=== PATIENT | male | born 1960 | race Caucasian/White ===

== ENCOUNTER → 2020-04-10 | Outpatient (CLI) | payer SELFPAY ==
--- NOTE | 2020-04-10 16:41 | Diagnostic Imaging Report ---
EXAMINATION: Magnetic resonance imaging of the right shoulder without contrast. DATE: April 10, 2020. COMPARISON: None. HISTORY: 59-year-old male, right shoulder pain. History of multiple prior injuries. TECHNIQUE: Magnetic Resonance Imaging sequences were performed of the shoulder without contrast. FINDINGS: ROTATOR CUFF, LIGAMENTS, TENDONS, AND MUSCLES: There are full thickness, full width tears of the supraspinatus and infraspinatus tendons with tendon retraction at the glenoid. There is thinning of the subscapularis tendon. The teres minor tendon is intact. There is moderate to severe fatty atrophy of the supraspinatus, infraspinatus, and teres minor muscles. LONG HEAD OF BICEPS: The proximal long head of the biceps tendon is not identified in its intra-articular segment or in the bicipital groove and is likely torn and retracted below the level of the bicipital groove. GLENOHUMERAL JOINT: The humeral head is well positioned relative to the glenoid. The labrum is grossly intact. There is no identified paralabral cyst. The articular cartilage is grossly intact. There is no joint effusion. ACROMIOCLAVICULAR JOINT: The acromioclavicular joint is normally aligned. The coracoclavicular and coracoacromial ligaments are intact. There are moderate acromioclavicular degenerative changes with 4 mm undersurface osteophytes. BONE: There is no os acromiale. There is no acute fracture, bone contusion, or evidence of osteonecrosis. There is a prominent subcortical cyst in the superior humeral head underlying the infraspinatus tendon insertion. BURSAE AND SOFT TISSUES: The bursae and soft tissue surrounding the shoulder are unremarkable. IMPRESSION: 1. Full thickness, full width tears of the supraspinatus and infraspinatus tendons with tendon retraction to the level of the glenoid. Thinning of the subscapularis tendon. Moderate to severe fatty atrophy of the supraspinatus, infraspinatus, and teres minor muscles. 2. Moderate acromioclavicular degenerative changes with 4 mm undersurface osteophytes. 3. Grossly intact labrum and unremarkable additional glenohumeral joint assessment. 4. No acute fracture, bone contusion, or evidence of osteonecrosis. 5. Lack of visualization of the intra-articular segment of the long head of biceps tendon or within the bicipital groove. The proximal long head of biceps tendon may be torn and retracted below the level of the bicipital groove. Dictated by: Dictated on workstation # [id number]
== END ==
LOC: RAD 13:41
PROVIDERS: ATTEND Nurse Practitioner
DX: S46.011A Strain of muscle(s) and tendon(s) of the rotator cuff of right shoulder, initial encounter (principal); X58.XXXA Exposure to other specified factors, initial encounter; M19.011 Primary osteoarthritis, right shoulder
CPT/HCPCS: 73221

== ENCOUNTER → 2020-06-28 | Outpatient (CLI) | payer OTHER ==
[~2020-06-28] VITALS: Ht 170 cm; Wt 79.0 kg
[~2020-06-28] MED LIST: CATHETER FLUSH 10 ML SYR IV PRN; REGADENOSON 0.4 MG/5 ML SYR (LEXISCAN) IV ONE
[2020-06-28 12:43] VITALS: BP 137/97
--- NOTE | 2020-06-28 15:39 | Cardiology Stress Test Report ---
Stress Test Report Date of Procedure/Referring: Date of Procedure: Jun 28, 2020 PCP Amita Jenkins MD Admitting Physician No,Local Physician Indications: CP Baseline Heart Rate: 87 Baseline Blood Pressure: Blood Pressure Systolic: 137 Blood Pressure Diastolic: 97 Baseline Vitals Vital Signs Date Time Temp Pulse Resp B/P (MAP) Pulse Ox O2 Delivery O2 Flow Rate FiO2 06/28/20 12:43 83 137/97 (110) 98 Baseline EKG: Baseline EKG: NSR Summary After explaining the procedure to the patient, he signed a consent and then brought to the stress nuclear laboratory. Patient received 0.4 mg Lexiscan for stress test, ECG, heart rate and blood pressure were monitored continuously. Resting and stress dose of radio tracer were injected, imaging was acquired and reviewed in short axis, horizontal long axis and vertical long axis views. TID: 1.04 SSS: 1 SDS: 1 EF: 33 1. Patient tolerated Lexiscan well 2. Nondiagnostic EKG changes with Lexiscan injection resolved at the end of the test 3. Diaphragmatic attenuation with decreased uptake involving the mid to apical inferior wall and inferolateral wall with mild reversibility 4. Prominent left ventricle with hypokinesia at the inferior wall and inferolateral wall, EF 33% AMITA JENKINS MD Jun 28, 2020 15:39
== END ==
LOC: CARD 10:33
PROVIDERS: ATTEND Internal Medicine Cardiovascular Disease
DX: I45.10 Unspecified right bundle-branch block (principal); I51.7 Cardiomegaly; I35.1 Nonrheumatic aortic (valve) insufficiency; I35.0 Nonrheumatic aortic (valve) stenosis
CPT/HCPCS: 78452; 93017; 93306; A9502

== ENCOUNTER 2020-07-12 09:00 | Day surgery (SDC) | payer OTHER ==
[~2020-07-12] VITALS: Ht 170 cm; Wt 77.0 kg
[2020-07-12] VITALS (10 sets, daily range): BP systolic 115–146; BP diastolic 75–87
[2020-07-12 07:46] LABS: HEMOGLOBIN 15.6 g/dL (13.3-17.7); MEAN PLATELET VOLUME 10.6 fL (9.0-12.2); WHITE BLOOD COUNT 8.7 10^3/uL (4.3-11.0)
[2020-07-12 07:48] LABS: BILIRUBIN,URINE NEGATIVE (NEGATIVE); CLARITY,URINE CLEAR; COLOR,URINE YELLOW; GLUCOSE, URINE (UA) NEGATIVE (NEGATIVE); KETONES,URINE NEGATIVE (NEGATIVE); LEUKOCYTE ESTERASE ,URINE NEGATIVE (NEGATIVE); NITRITE,URINE NEGATIVE (NEGATIVE); PROTEIN,URINE NEGATIVE (NEGATIVE)
--- NOTE | 2020-07-12 07:54 | Diagnostic Imaging Report ---
INDICATION: Preop EXAMINATION: Portable chest. FINDINGS: The lungs are well-aerated and clear. The heart is not enlarged. No pulmonary edema or hilar adenopathy. No pneumothorax or pleural effusion. No bony abnormalities. IMPRESSION: Normal portable chest. Dictated by: Dictated on workstation # [id number]
[2020-07-12 08:00] LABS: BACTERIA,URINE NEGATIVE /HPF
[2020-07-12 08:12] LABS: INR 0.9 (0.8-1.4); PROTHROMBIN TIME PATIENT 12.3 SEC (12.2-14.7)
[2020-07-12 08:13] LABS: ALANINE AMINOTRANSFERASE 58 U/L (0-55); ALBUMIN 4.3 GM/DL (3.2-4.5); ALKALINE PHOSPHATASE 137 U/L (40-136); BILIRUBIN,TOTAL 0.6 MG/DL (0.1-1.0); BUN/CREATININE RATIO 13; CALCIUM 9.2 MG/DL (8.5-10.1); CARBON DIOXIDE 26 MMOL/L (21-32); CHLORIDE 102 MMOL/L (98-107); CHOLESTEROL 166 MG/DL (< 200); CREATININE SERUM 1.07 MG/DL (0.60-1.30); GFR ESTIMATED > 60; GLUCOSE 106 MG/DL (70-105); HDL CHOLESTEROL 44 MG/DL (40-60); POTASSIUM 3.8 MMOL/L (3.6-5.0); SODIUM 140 MMOL/L (135-145); TOTAL PROTEIN 8.1 GM/DL (6.4-8.2); TRIGLYCERIDES 118 MG/DL (<150); VLDL CHOLESTEROL 24 MG/DL (5-40)
--- NOTE | 2020-07-12 08:38 | Conscious Sedation/ASA ---
Conscious Sedation Pre-Proced Time 08:38 ASA Score 3 For ASA 3 and 4: Consider anesthesia and medical clearance. Also, for patients with a history of failed moderate sedation consider anesthesia. Airway Lungs Heart ASA score ASA 1: a normal healthy patient ASA 2: a patient with a mild systemic disease (mid diabetes, controlled hypertension, obesity x ASA 3: a patient with a severe systemic disease that limits activity (angina, COPD, prior Myocardial infarction) ASA 4: a patient with an incapacitating disease that is a constant threat to life (CHF, renal failure) ASA 5: a moribund patient not expected to survive 24 hrs. (ruptured aneurysm) ASA 6: a declared brain- patient whose organs are being harvested. For emergent operations, add the letter E after the classification Mallampati Classification Grade 3 Sedation Plan Analgesia, Amnesia, Plan communicated to team members, Discussed options with patient/fam, Discussed risks with patient/fam The patient is an appropriate candidate to undergo the planned procedure, sedation, and anesthesia. The patient immediately re-assessed prior to indication. AMITA KAUR MD July 12, 2020 08:38
[~2020-07-12 09:00] MED LIST changes: +ASPI-1238 PO; +ATOR40TA70 PO; -CATHETER FLUSH 10 ML SYR IV PRN; +HEParin (CATH LAB) 2,000 ML IV ONE; +LIDOCAINE 1% INJ 20 ML 20 ML VIAL ONE; +MIDAZOLAM 5 MG/5 ML (VERSED) VIAL ONE; +MTP25TSR PO; +NS IV 1000 ML 1,000 ML IV SCH; +NS IV 1000 ML 1,000 ML ONE; +OMEP20CA18 PO; -REGADENOSON 0.4 MG/5 ML SYR (LEXISCAN) IV ONE; +RT-ALBUINH IH; +fentaNYL INJ 100 MCG/2 ML AMP ONE
--- NOTE | 2020-07-12 09:40 | Cardiac Cath Report ---
Cardiac Cath Report Physician (s)/[employer] Helper (s) Physician AMITA KAUR MD Pre-Procedure Diagnosis Pre-Procedure Diagnosis: Aortic stenosis Post-Procedure Note Procedure Start Date: July 12, 2020 Name of Procedure: Left heart catheterization Findings/Procedure Note PROCEDURE NOTE: 59 years old gentleman with critical aortic valve stenosis, having chest pain, shortness of breath, scheduled for cardiac catheterization possible PTCA. After explaining the procedure to the patient, all pros and cons were explained, all questions were answered. The patient signed the consent and then he was placed on the cardiac catheterization laboratory. Groin was prepped SL fashion local anesthesia was used. Sheath placed in the right femoral artery, Meena left catheter was advanced to the left coronary system, angiogram was done, Meena right catheter was advanced over Storq wire, prolapsed to the left ventricle after crossing the valve with the Storq wire, pressure was measured, left ventriculogram was done, pullback LV to aorta was done. Intubated the right coronary artery and angiogram was done. At the end of the procedure the sheath was removed. Closure device was deployed FINDINGS: Hemodynamics LV 211/32, end-diastolic pressure of 32 Aorta 126/69 mean of 90 Pressure gradient during pullback was 85 mmHg ANATOMY: Left Main is free of obstructive disease Left Anterior Descending has no significant obstructive disease Left Circumflex has no significant obstructive disease Right Coronary Artery has no significant obstructive disease LV Gram was done showing normal left ventricular size, systolic function is mildly reduced estimate ejection fraction 40% CONCLUSION: 1. Critical aortic valve stenosis with peak to peak gradient across the aortic valve of 85 mmHg 2. No significant obstructive disease in the coronary system 3. Mild diffuse left ventricular hypokinesia with EF 45%, significantly elevated left ventricular end-diastolic pressure DISCUSSION AND RECOMMENDATION: Referral for aortic valve replacement, I instructed the patient to stop Lipitor due to elevated liver enzymes Anesthesia Type: Conscious Sedation Estimated blood loss (mL): 15 ml Contrast Amount: 50 ml Total Radiation Dose: 228 mGy Post-Procedure Diagnosis Post-operative diagnosis: Critical aortic valve stenosis Hypertension Chest pain AMITA KAUR MD July 12, 2020 9:40 am
[2020-07-12] MEDS ORDERED: NS IV 1000 ML 1,000 ML IV SCH (09:45)
[2020-07-12] MEDS ORDERED: PATIENT MAY USE OWN MEDS, ALL PO SCH (09:45)
--- NOTE | 2020-07-12 09:50 | Discharge Inst-Post CATH ---
Discharge Inst-CATH/EP Problems Reviewed?: Yes Post Cardiac Cath/EP D/C Inst Follow Up/Plan Appointment with Dr. Nuñez next Friday on July 19, [address] Kaur's office in 4 weeks <b>CARDIAC CATH/EP PROCEDURE DISCHARGE INSTRUCTIONS</b> ACTIVITY * Go Home directly and rest. * Limit activity of the leg (or wrist if it was used) for 7 days including aerobics, swimming, jogging, bicycling, etc. * Restrict stair-climbing for 7 days if possible, if not, climb up with your non-cath leg, then bring together on the same step. * Avoid lifting, pushing, pulling or excessive movement of the affected extremity for 7 days. * Customary sexual activity may be resumed after 2 days-use caution not to use a position that strains or causes pain to the affected extremity. * No driving for 24 hours. * NO SMOKING. * Avoid straining for bowel movements for 7 days. * Gentle walking on level ground is allowed. * Returning to work will depend on the type of procedure and the results. Your doctor will discuss this with you. CALL YOUR DOCTOR FOR ANY OF THE FOLLOWING: *If bleeding from the puncture site occurs- Apply gentle pressure to site with clean cloth and call your doctor or EMS. * If a knot or lump forms under the skin, increases in size, or causes pain. * If bruising appears to be worsening or moving further down your leg instead of disappearing. * Temperature above 101 F. CARE OF YOUR GROIN INCISION; * Bruising or purple discoloration of the skin near the puncture site is common. * You may shower only, no bathtub bathing for 5 days. Be careful to avoid slipping as your leg may feel stiff. * If a closure device was used on your femoral artery, please see the attached guide regarding care of the device and your leg. * Leave dressing on FOR 24 hours. CARE OF YOUR WRIST INCISION; * Bruising or purple discoloration of the skin near the puncture site is common. * You may shower. * DO NOT submerge wrist. * Leave dressing on FOR 24 hours. AMITA KAUR MD July 12, 2020 9:50 am
== END 2020-07-12 14:15 | disposition home or self-care (01) ==
LOC: CATH 09:00 → SDC 09:54 → CATH 14:15
PROVIDERS: ATTEND Internal Medicine Cardiovascular Disease
DX: R07.2 Precordial pain (principal); I35.2 Nonrheumatic aortic (valve) stenosis with insufficiency; I11.9 Hypertensive heart disease without heart failure; E78.5 Hyperlipidemia, unspecified; F17.210 Nicotine dependence, cigarettes, uncomplicated; R09.89 Other specified symptoms and signs involving the circulatory and respiratory systems; Z88.0 Allergy status to penicillin; Z79.899 Other long term (current) drug therapy; Z80.9 Family history of malignant neoplasm, unspecified; Z82.3 Family history of stroke
CPT/HCPCS: 36430; 71045; 80053; 80061; 81000; 85027; 85610; 85730; 87081; 93458; C1760; C1769; C1894; 36415

== ENCOUNTER 2021-01-11 08:01 | Emergency (ER) | payer MEDICAID ==
[~2021-01-11] VITALS: Ht 170.1 cm; Wt 77.0 kg
[~2021-01-11 08:01] MED LIST changes: -HEParin (CATH LAB) 2,000 ML IV ONE; -LIDOCAINE 1% INJ 20 ML 20 ML VIAL ONE; -MIDAZOLAM 5 MG/5 ML (VERSED) VIAL ONE; -NS IV 1000 ML 1,000 ML IV SCH; -NS IV 1000 ML 1,000 ML ONE; -fentaNYL INJ 100 MCG/2 ML AMP ONE
[2021-01-11] MEDS ORDERED: NS IV 1000 ML 1,000 ML IV STA (08:19)
--- NOTE | 2021-01-11 08:19 | ED EENT ---
History of Present Illness General Chief Complaint: Facial Problems Stated Complaint: FACIAL SWELLING; SORE THROAT Source: patient History of Present Illness Date Seen by Provider: Jan 11, 2021 Time Seen by Provider: 08:03 Initial Comments 60 yo male presents with right throat pain and right facial swelling that started about 1 hour [employer]. He started lipitor 40 mg and Lisinopril 40 mg yesterday after seeing Dr. Veronica Arellano in the [facility] clinic. He states he did use a chloraseptic spray for his throat and thinks the swelling was after that. He had no fever or chills but states he felt like he was coming down with a cold in last day or two. He was having some muffled voice. He reports pain with swallowing. He thought he was having an allergic reaction since he just started those medicines yesterday. He has no shortness of breath, wheezing, rash, itching. He did notice on his left forearm that he had an area with a ring around it that looked like a scratch in the middle of the ring. He was wondering if it might be a spider bite since he had a ring around the area. Timing/Duration: abrupt, this morning Severity: moderate Location: throat, facial Prearrival Treatment: no prearrival treatment Associated Symptoms: No change in hearing, No cough, No drooling, No ear drainage; facial pain/swelling; No fever; malaise, nasal congestion/drainage; No poor fluid intake, No poor solids intake, No sinus infection; sore throat; No tooth pain (edentulous); voice change (muffled) Allergies and Home Medications Allergies Coded Allergies: Penicillins (Unverified Allergy, Unknown, 06/28/20) Patient Home Medication List Home Medication List Reviewed: Yes Albuterol Sulfate (Proair Hfa) 1 Puff Puff, 2 PUFF IH Q6H PRN for SHORTNESS OF BREATH, (Reported) Entered as Reported by: CHEYENNE MODI on 07/12/20 0749 Aspirin (Aspirin EC) 81 Mg Tablet.dr, 81 MG PO DAILY, (Reported) Entered as Reported by: CHEYENNE MODI on 07/12/20 0749 Clindamycin HCl (Clindamycin HCl) 300 Mg Capsule, 300 MG PO Q6H Prescribed by: OSCAR SEGURA on 01/11/21 1008 Metoprolol Succinate (Metoprolol Succinate) 25 Mg Tab.er.24h, 25 MG PO DAILY, (Reported) Entered as Reported by: CHEYENNE MODI on 07/12/2049 Omeprazole (Omeprazole) 20 Mg Capsule.dr, 20 MG PO DAILY, (Reported) Entered as Reported by: CHEYENNE MODI on 07/12/20 0749 Review of Systems Review of Systems Constitutional: No chills, No fever; malaise Eyes: No Symptoms Reported Ears: No Symptoms Reported Nose: see HPI Mouth: swelling (right cheek and face) Throat: pain (right side), swelling (right side); denies neck stiffness; muffled, painful swallowing Respiratory: no symptoms reported Cardiovascular: no symptoms reported Gastrointestinal: no symptoms reported Musculoskeletal: no symptoms reported Skin: no symptoms reported Neurological: No Symptoms Reported Past Nnkeypj-[id number]-Kwckdd Hx Patient Social History Tobacco Use?: Yes Tobacco type used: Cigarettes Smoking Status: Current Everyday Smoker Substance use?: No Past Medical History Surgery/Hospitalization HX: Aortic valve replacement, All teeth removed Surgeries: Yes Valve Replacement (aortic) Respiratory: Yes COPD Currently Using CPAP: No Currently Using BIPAP: No Cardiac: Yes High Cholesterol, Hypertension, Valvular Heart Disease (Aortic Valve Stenosis resulting in valve replacement) Neurological: Yes Concussion Genitourinary: No Gastrointestinal: Yes Gastroesophageal Reflux Cancer: No Physical Exam Vital Signs Vital Signs - First Documented 01/11/21 08:16 Temp 36.2 Pulse 87 Resp 16 B/P (MAP) 156/97 (116) Pulse Ox 97 O2 Delivery Room Air Height, Weight, BMI Height: '" Weight: lbs. oz. kg; 26.64 BMI Method: General Appearance: WD/WN, no apparent distress, other (anxious) Eyes: bilateral eye PERRL, bilateral eye EOMI Mouth/Throat: voice changes (muffled), other (swelling to right cheek and right posterior pharynx with erythema to posterior pharynx extending up to the soft palate. No exudate seen. Strong Gag Reflex makes it difficult to visualize posterior pharynx. Edentulous) Neck: non-tender, full range of motion, supple, normal inspection Cardiovascular: normal peripheral pulses, regular rate, rhythm Respiratory: chest non-tender, normal breath sounds Neurologic/Psychiatric: alert, oriented x 3 Skin: normal color, warm/dry; No rash; other (5 mm linear abrasion to mid left forearm with surrounding ring of faint erythema. swelling to right cheek) Progress/Results/Core Measures Results/Orders Lab Results Laboratory Tests Test 01/11/21 08:23 Range/Units White Blood Count 10.5 4.3-11.0 10^3/uL Red Blood Count 5.84 H 4.30-5.52 10^6/uL Hemoglobin 15.7 13.3-17.7 g/dL Hematocrit 49 40-54 % Mean Corpuscular Volume 84 80-99 fL Mean Corpuscular Hemoglobin 27 25-34 pg Mean Corpuscular Hemoglobin Concent 32 32-36 g/dL Red Cell Distribution Width 17.6 H 10.0-14.5 % Platelet Count 167 130-400 10^3/uL Mean Platelet Volume 10.7 9.0-12.2 fL Immature Granulocyte % (Auto) 0 % Neutrophils (%) (Auto) 69 42-75 % Lymphocytes (%) (Auto) 18 12-44 % Monocytes (%) (Auto) 11 0-12 % Eosinophils (%) (Auto) 2 0-10 % Basophils (%) (Auto) 0 0-10 % Neutrophils # (Auto) 7.2 1.8-7.8 X 10^3 Lymphocytes # (Auto) 1.9 1.0-4.0 X 10^3 Monocytes # (Auto) 1.2 H 0.0-1.0 X 10^3 Eosinophils # (Auto) 0.2 0.0-0.3 10^3/uL Basophils # (Auto) 0.0 0.0-0.1 10^3/uL Immature Granulocyte # (Auto) 0.0 0.0-0.1 10^3/uL Sodium Level 137 135-145 MMOL/L Potassium Level 4.1 3.6-5.0 MMOL/L Chloride Level 102 98-107 MMOL/L Carbon Dioxide Level 26 21-32 MMOL/L Anion Gap 9 5-14 MMOL/L Blood Urea Nitrogen 17 7-18 MG/DL Creatinine 1.35 H 0.60-1.30 MG/DL Estimat Glomerular Filtration Rate 54 BUN/Creatinine Ratio 13 Glucose Level 111 H 70-105 MG/DL Calcium Level 9.2 8.5-10.1 MG/DL Corrected Calcium 9.0 8.5-10.1 MG/DL Total Bilirubin 0.6 0.1-1.0 MG/DL Aspartate Amino Transf (AST/SGOT) 27 5-34 U/L Alanine Aminotransferase (ALT/SGPT) 22 0-55 U/L Alkaline Phosphatase 110 40-136 U/L Total Protein 7.8 6.4-8.2 GM/DL Albumin 4.2 3.2-4.5 GM/DL Group A Streptococcus Screen NEGATIVE NEGATIVE My Orders Orders - OSCAR SEGURA MD Comprehensive Metabolic Panel (01/11/21 08:16) Ed Iv/Invasive Line Start (01/11/21 08:16) Cbc With Automated Diff (01/11/21 08:16) Rapid Strep A Screen (01/11/21 08:16) Ct Neck (Soft Tissue) W (01/11/21 08:16) Dexamethasone Injection (Decadron Inje (01/11/21 08:16) Ns Iv 1000 Ml (Sodium Chloride 0.9%) (01/11/21 08:19) Iohexol Injection (Omnipaque 350 Mg/Ml 1 (01/11/21 08:30) Received Contrast (Hold Metformin- Contr (01/11/21 08:30) Sodium Chloride Flush (Catheter Flush Sy (01/11/21 08:30) Ns (Ivpb) (Sodium Chloride 0.9% Ivpb Bag (01/11/21 08:30) Clindamycin 600 Mg/50 Ml Ivpb (Cleocin P (01/11/21 09:50) Medications Given in ED Current Medications Medications Dose Ordered Sig/Lena Route Start Time Stop Time Status Last Admin Dose Admin Iohexol 75 ml ONCE ONCE IV 01/11/21 08:30 01/11/21 08:31 DC 01/11/21 09:08 75 ML Sodium Chloride 10 ml NEEDED PRN IV 01/11/21 08:30 01/11/21 10:28 DC 01/11/21 09:08 10 ML Sodium Chloride 100 ml ONCE ONCE IV 01/11/21 08:30 01/11/21 08:31 DC 01/11/21 09:08 100 ML Vital Signs/I&O 01/11/21 01/11/21 08:16 10:32 Temp 36.2 36.2 Pulse 87 87 Resp 16 16 B/P (MAP) 156/97 (116) 156/97 Pulse Ox 97 97 O2 Delivery Room Air Room Air Progress Progress Note #1: Progress Note Obtain basic labs with rapid strep swab to check for infection. This does not appear to be an allergic reaction since it is so localized. Obtain CT scan of soft tissue neck to check for peritonsillar abscess, periodontal abscess, salivary duct stone with obstruction. Give IVF for hydration, a single dose of decadron for throat pain and swelling as well as cheek swelling to see if that helps symptoms while waiting on scan. Progress Note #2: Time: 08:54 Progress Note CBC with WBC at 10.5, so upper limit of normal. Normal differential. Rapid strep swab was negative. Pending chemistry to ensure renal function is ok before CT scan with contrast to be obtained. Progress Note #3: Time: 09:02 Progress Note Cr is 1.35 slightly up from his Cr of 1.07 in July. He has a slightly lower GFR now because of that, otherwise no acute significant abnormality for his chemistry panel. Pt going to CT scan now. Progress Note #4: Progress Note CT scan shows inflammation of right cheek and posterior pharynx with some fluid but no focal collection of fluid to indicate a drainable abscess. Will treat with clindamycin since he is allergic to Pcn. Give first dose IV here and continue by mouth at home. Counseled on results, plan, follow up and return precautions. Diagnostic Imaging Diagonstic Imaging: CT Plain Films/CT/US/NM/MRI: other (soft tissue neck) Comments NAME: [facility] REC#: [id number] PT STATUS: REG ER : 1960 PHYSICIAN: OSCAR SEGURA MD ADMIT DATE: 01/11/21/ER FS Draft Date of Exam:01/11/21 CT NECK (SOFT TISSUE) W PROCEDURE: CT neck soft tissue with contrast. TECHNIQUE: Multiple contiguous axial images were obtained through the neck after the administration of contrast. Auto Exposure Controls were utilized during the CT exam to meet ALARA standards for radiation dose reduction. INDICATION: Right-sided facial swelling and sore throat. COMPARISON: None available. FINDINGS: There is asymmetric subcutaneous reticulations and soft tissue swelling involving the right superficial space at the level of the right maxillary ridge and extending over the right hemimandible. The right platysmas muscle is asymmetrically thickened. No rim-enhancing fluid collection within the superficial space. Inflammatory changes extend deep along the buccal space. There is also abnormal low attenuation thickening in the parapharyngeal fat, it is asymmetric to the right and most abundant at the level of the oropharynx. Abnormal swelling and low-attenuation thickening of the uvula and epiglottis is also present. The low-attenuation inflammation and edema involves the retropharyngeal space from the level of C2-C7. However, there is no rim-enhancing collection that would indicate drainable abscess at this time. The airway remains patent but there is effacement of the right piriform sinus. No inflammatory stranding along the false vocal folds. The submandibular and parotid glands are normal in appearance without inflammatory change. Thyroid is unremarkable. No cervical lymphadenopathy. Lung apices are clear with exception of emphysema. No features of discitis-osteomyelitis. Visualized portions of the brain are unremarkable. IMPRESSION: 1. Multi-spatial inflammatory change is most abundant around the pharynx with nonloculated edema/phlegmon extending from the level the oral pharynx through the hypopharynx. Retropharyngeal fluid and swelling is present with mild mass effect on the hypopharyngeal airway. However, there is no rim-enhancing fluid collection that would suggest a drainable abscess. 2. There is no inflammatory change extending into the mediastinum. 3. The patient is edentulous and there are no features of osteomyelitis in the mandible. Dictated on workstation # [id number] Dict: 01/11/21917 Trans: 01/11/21 0938 [facility] [id number] Interpreted by: SUNNI PANDYA MD Electronically signed by: Reviewed: Reviewed by Me Departure Impression Primary Impression: Pharyngitis, acute Qualified Codes: J02.9 - Acute pharyngitis, unspecified Additional Impressions: Swelling of right side of face Throat pain in adult Cellulitis of face Disposition: 01 HOME, SELF-CARE Condition: Stable Departure-Patient Inst. Decision time for Depature: 10:16 Referrals: VERONICA ARELLANO MD (PCP/Family) Primary Care Physician Patient Instructions: Cellulitis (Skin Infection), Adult ED, Sore Throat, Adult ED Add. Discharge Instructions: Stay well-hydrated and drink plenty of water and electrolyte drinks. While taking the antibiotic for the infection in your cheek and throat make sure that you try taking a probiotic or at least yogurt with active cultures to help maintain the good bacteria in your system. Make sure to take the entire course of antibiotics to fully treat for infection in throat and cheek. If you have worsening trouble with your swallowing or get to the point where you could not swallow your own saliva and spit, then you would need to be seen again in the emergency department or in the hospital in [place] as you may need IV fluids and the internal controls specialist may need to possibly drain fluid from your infection in the neck and throat. All discharge instructions reviewed with patient and/or family. Voiced understanding. Scripts Clindamycin HCl (Clindamycin HCl) 300 Mg Capsule 300 MG PO Q6H for throat infection for 10 Days, #40 CAP 0 Refills Prov: OSCAR SEGURA MD 01/11/21 Images Head/Face 1 - Swelling (swollen right cheek without significant tenderness. no induration or fluctuance) OSCAR SEGURA MD Jan 11, 2021 08:19
[2021-01-11] MEDS ORDERED: HOLD METFORMIN - RECEIVED CONTRAST 20 ML VIAL IV SCH (08:30)
[2021-01-11] MEDS ORDERED: NS 100 ML (IVPB) BAG IV ONE (08:30)
[2021-01-11] MEDS ORDERED: CATHETER FLUSH 10 ML SYR IV PRN (08:30)
[2021-01-11] MEDS ORDERED: IOHEXOL 350 MG/ML 100 ML (OMNIPAQUE 350) VIAL IV ONE (08:30)
[2021-01-11 08:43] LABS: HEMATOCRIT 49 % (40-54); HEMOGLOBIN 15.7 g/dL (13.3-17.7); MEAN CORPUSCULAR HEMOGLOBIN 27 pg (25-34); MEAN CORPUSCULAR HGB CONC 32 g/dL (32-36); MEAN CORPUSCULAR VOLUME 84 fL (80-99); MEAN PLATELET VOLUME 10.7 fL (9.0-12.2); PLATELET COUNT 167 10^3/uL (130-400); WHITE BLOOD COUNT 10.5 10^3/uL (4.3-11.0)
[2021-01-11 08:44] LABS: BASOPHILS % (AUTO) 0 % (0-10); EOSINOPHILS # (AUTO) 0.2 10^3/uL (0.0-0.3); EOSINOPHILS % (AUTO) 2 % (0-10); LYMPHOCYTES # (AUTO) 1.9 X 10^3 (1.0-4.0); LYMPHOCYTES % (AUTO) 18 % (12-44); MONOCYTES # (AUTO) 1.2 X 10^3 (0.0-1.0); MONOCYTES % (AUTO) 11 % (0-12); NEUTROPHILS # (AUTO) 7.2 X 10^3 (1.8-7.8); NEUTROPHILS % (AUTO) 69 % (42-75)
[2021-01-11 08:57] LABS: CREATININE SERUM 1.35 MG/DL (0.60-1.30); POTASSIUM 4.1 MMOL/L (3.6-5.0)
[2021-01-11 08:58] LABS: ALBUMIN 4.2 GM/DL (3.2-4.5); BILIRUBIN,TOTAL 0.6 MG/DL (0.1-1.0); CALCIUM 9.2 MG/DL (8.5-10.1); TOTAL PROTEIN 7.8 GM/DL (6.4-8.2)
--- NOTE | 2021-01-11 09:38 | Diagnostic Imaging Report ---
PROCEDURE: CT neck soft tissue with contrast. TECHNIQUE: Multiple contiguous axial images were obtained through the neck after the administration of contrast. Auto Exposure Controls were utilized during the CT exam to meet ALARA standards for radiation dose reduction. INDICATION: Right-sided facial swelling and sore throat. COMPARISON: None available. FINDINGS: There is asymmetric subcutaneous reticulations and soft tissue swelling involving the right superficial space at the level of the right maxillary ridge and extending over the right hemimandible. The right platysmas muscle is asymmetrically thickened. No rim-enhancing fluid collection within the superficial space. Inflammatory changes extend deep along the buccal space. There is also abnormal low attenuation thickening in the parapharyngeal fat, it is asymmetric to the right and most abundant at the level of the oropharynx. Abnormal swelling and low-attenuation thickening of the uvula and epiglottis is also present. The low-attenuation inflammation and edema involves the retropharyngeal space from the level of C2-C7. However, there is no rim-enhancing collection that would indicate drainable abscess at this time. The airway remains patent but there is effacement of the right piriform sinus. No inflammatory stranding along the false vocal folds. The submandibular and parotid glands are normal in appearance without inflammatory change. Thyroid is unremarkable. No cervical lymphadenopathy. Lung apices are clear with exception of emphysema. No features of discitis-osteomyelitis. Visualized portions of the brain are unremarkable. IMPRESSION: 1. Multi-spatial inflammatory change is most abundant around the pharynx with nonloculated edema/phlegmon extending from the level the oropharynx through the hypopharynx. Retropharyngeal fluid and swelling is present with mild mass effect on the hypopharyngeal airway. However, there is no rim-enhancing fluid collection that would suggest a drainable abscess. 2. There is no inflammatory change extending into the mediastinum. 3. The patient is edentulous and there are no features of osteomyelitis in the mandible. Dictated by: Dictated on workstation # [id number]
[2021-01-11] MEDS ORDERED: CLINDAMYCIN 600 MG/50 ML IVPB 50 ML IV STA (09:50)
[2021-01-11] MEDS ORDERED: CLIN-144 PO (10:08)
[2021-01-11 10:32] VITALS: BP 156/97
== END 2021-01-11 10:28 | disposition home or self-care (01) ==
LOC: EDUNIT# 08:01 → ER FS 08:03
DX: S50.812A Abrasion of left forearm, initial encounter (principal); J02.9 Acute pharyngitis, unspecified; R22.0 Localized swelling, mass and lump, head; L03.211 Cellulitis of face; I10 Essential (primary) hypertension; J44.9 Chronic obstructive pulmonary disease, unspecified; K21.9 Gastro-esophageal reflux disease without esophagitis; F17.210 Nicotine dependence, cigarettes, uncomplicated; Z87.820 Personal history of traumatic brain injury; Z79.82 Long term (current) use of aspirin; Z79.899 Other long term (current) drug therapy; X58.XXXA Exposure to other specified factors, initial encounter
CPT/HCPCS: 36415; 70491; 80053; 85025; 87430

== ENCOUNTER → 2021-12-27 | Outpatient (CLI) | payer MEDICAID ==
[~2021-12-27] MED LIST changes: +CLIN-144 PO
== END ==
LOC: CARDFS 12:30
PROVIDERS: ATTEND Internal Medicine Cardiovascular Disease
DX: I11.9 Hypertensive heart disease without heart failure (principal); I25.10 Atherosclerotic heart disease of native coronary artery without angina pectoris; Z95.2 Presence of prosthetic heart valve
CPT/HCPCS: 93306

== ENCOUNTER 2022-01-22 06:50 | Emergency (ER) | payer MEDICAID ==
[~2022-01-22] VITALS: Ht 170 cm; Wt 77.0 kg
[~2022-01-22 06:50] MED LIST changes: +ALBU8.5H6 IH; -RT-ALBUINH IH
[2022-01-22] MEDS ORDERED: diphenhydrAMINE 50 MG/ML INJ (BENADRYL) IVP STA (07:17)
[2022-01-22] MEDS ORDERED: FAMOTIDINE 20 MG (PEPCID) TABLET PO STA (07:17)
[2022-01-22 07:26] LABS: BASOPHILS % (AUTO) 0 % (0-10); EOSINOPHILS # (AUTO) 0.3 10^3/uL (0.0-0.3); EOSINOPHILS % (AUTO) 4 % (0-10); HEMATOCRIT 48 % (40-54); LYMPHOCYTES % (AUTO) 24 % (12-44); MEAN CORPUSCULAR HEMOGLOBIN 29 pg (25-34); MEAN CORPUSCULAR HGB CONC 34 g/dL (32-36); MEAN CORPUSCULAR VOLUME 87 fL (80-99); MEAN PLATELET VOLUME 10.7 fL (9.0-12.2); MONOCYTES # (AUTO) 1.1 10^3/uL (0.0-1.0); MONOCYTES % (AUTO) 13 % (0-12); NEUTROPHILS # (AUTO) 4.9 10^3/uL (1.8-7.8); NEUTROPHILS % (AUTO) 59 % (42-75); PLATELET COUNT 168 10^3/uL (130-400); WHITE BLOOD COUNT 8.2 10^3/uL (4.3-11.0)
--- NOTE | 2022-01-22 07:27 | ED EENT ---
History of Present Illness General Chief Complaint: Oral/Throat Problems Stated Complaint: TONGUE SWELLING Nursing Triage Note: PT REPORTS HE WOKE UP AND ATE A CUPCAKE AND THEN HIS LEFT SIDE OF HIS TONGUE STARTED SWELLING. Source: patient, old records Exam Limitations: no limitations History of Present Illness Date Seen by Provider: Jan 22, 2022 Time Seen by Provider: 07:03 Initial Comments 61-year-old male presenting with complaints of swelling to the left side of his tongue. He feels like this started last night but was worse this morning after he had a cupcake and drink some milk. He denies any new medications. He has not taken any adlg-chu-fittbpq medicines. He denies any new foods or exposures that he is aware of. He had episodes of swelling similar to this in the past. A year ago he was seen for swelling of the lips and a sore throat. At that time he was treated with antibiotics. He denies having fever or chills. He feels like he is having some difficulty swallowing this morning. He has handling his own secretions. He had not tried anything at home for the swelling. He had his girlfriend drop him off here at the ED. Timing/Duration: gradual Severity: moderate Location: mouth (tongue and under his tongue) Prearrival Treatment: no prearrival treatment Modifying Factors: Worse With Other (difficulty swallowing) Associated Symptoms: No change in hearing, No cough, No drooling, No ear drainage, No facial pain/swelling, No fever, No malaise, No nasal congestion/drainage, No poor fluid intake, No poor solids intake, No sinus infection, No sore throat, No tooth pain (edentulous), No voice change Allergies and Home Medications Allergies Coded Allergies: Penicillins (Unverified Allergy, Unknown, 06/28/20) Patient Home Medication List Home Medication List Reviewed: Yes Albuterol Sulfate (Ventolin Hfa) 1 Puff Puff, 2 PUFF IH Q6H PRN for SHORTNESS OF BREATH, (Reported) Entered as Reported by: CHEYENNE MODI on 07/12/20 0749 Aspirin (Aspirin EC) 81 Mg Tablet.dr, 81 MG PO DAILY, (Reported) Entered as Reported by: CHEYENNE MODI on 07/12/20 0749 Clindamycin HCl (Clindamycin HCl) 300 Mg Capsule, 300 MG PO Q6H Prescribed by: OSCAR SEGURA on 01/11/21 1008 Diphenhydramine HCl (Diphenhydramine HCl) 25 Mg Capsule, 25 MG PO Q4H PRN for tongue swelling Prescribed by: OSCAR SEGURA on 01/22/22 0840 Metoprolol Succinate (Metoprolol Succinate) 25 Mg Tab.er.24h, 25 MG PO DAILY, (Reported) Entered as Reported by: CHEYENNE MODI on 07/12/20 0749 Omeprazole (Omeprazole) 20 Mg Capsule.dr, 20 MG PO DAILY, (Reported) Entered as Reported by: CHEYENNE MODI on 07/12/20 0749 Prednisone (Prednisone) 20 Mg Tab, 40 MG PO DAILY Prescribed by: OSCAR SEGURA on 01/22/22 0840 Review of Systems Review of Systems Constitutional: No chills, No fever Eyes: No Symptoms Reported Ears: No Symptoms Reported Nose: no symptoms reported Mouth: see HPI Throat: see HPI Respiratory: no symptoms reported Cardiovascular: no symptoms reported Gastrointestinal: no symptoms reported Musculoskeletal: no symptoms reported Skin: no symptoms reported; No rash Neurological: No Symptoms Reported Immunological/Allergic: denies food allergy Past Pvazdnk-Vyettv-Echhwe Hx Patient Social History Tobacco Use?: Yes Tobacco type used: Cigarettes Smoking Status: Current Everyday Smoker Use of E-Cig and/or Vaping dev: No Substance use?: Yes Substance type: Marijuana Substance frequency: Couple times a week Alcohol Use?: Yes Alcohol type: Hard Liquor Alcohol Frequency: Daily Pt feels they are or have been: No Immunizations Up To Date First/Initial COVID19 Vaccinat: August 2020 Second COVID19 Vaccination Kareem: August 2020 Third COVID19 Vaccination Date: August 2020 Past Medical History Surgery/Hospitalization HX: Aortic valve replacement, All teeth removed, Hypertension Surgeries: Yes Valve Replacement Respiratory: Yes COPD Currently Using CPAP: No Currently Using BIPAP: No Cardiac: Yes High Cholesterol, Hypertension, Valvular Heart Disease Neurological: Yes Concussion Genitourinary: No Gastrointestinal: Yes Gastroesophageal Reflux Cancer: No Physical Exam Vital Signs Vital Signs - First Documented 01/22/22 07:10 Temp 36.1 Pulse 85 Resp 16 B/P (MAP) 151/88 (109) Pulse Ox 96 O2 Delivery Room Air Height, Weight, BMI Height: '" Weight: lbs. oz. kg; 26.00 BMI Method: General Appearance: no apparent distress, other (appears older than stated age) Eyes: bilateral eye PERRL, bilateral eye EOMI Mouth/Throat: pharynx normal; No excessive drooling, No mandibular swelling, No maxillary swelling, No pharynx swelling; tongue swollen (under the tongue and left side of tongue); No tonsillar exudate, No trismus, No voice changes, No other (no stridor) Neck: non-tender, full range of motion, supple, normal inspection Cardiovascular: normal peripheral pulses, regular rate, rhythm Respiratory: chest non-tender, lungs clear, normal breath sounds Neurologic/Psychiatric: clinical social work therapist II-XII nml as tested, alert, oriented x 3 Skin: normal color, warm/dry; No rash Progress/Results/Core Measures Results/Orders Lab Results Laboratory Tests Test 01/22/22 07:20 Range/Units White Blood Count 8.2 4.3-11.0 10^3/uL Red Blood Count 5.49 4.30-5.52 10^6/uL Hemoglobin 16.0 13.3-17.7 g/dL Hematocrit 48 40-54 % Mean Corpuscular Volume 87 80-99 fL Mean Corpuscular Hemoglobin 29 25-34 pg Mean Corpuscular Hemoglobin Concent 34 32-36 g/dL Red Cell Distribution Width 14.6 H 10.0-14.5 % Platelet Count 168 130-400 10^3/uL Mean Platelet Volume 10.7 9.0-12.2 fL Immature Granulocyte % (Auto) 0 % Neutrophils (%) (Auto) 59 42-75 % Lymphocytes (%) (Auto) 24 12-44 % Monocytes (%) (Auto) 13 H 0-12 % Eosinophils (%) (Auto) 4 0-10 % Basophils (%) (Auto) 0 0-10 % Neutrophils # (Auto) 4.9 1.8-7.8 10^3/uL Lymphocytes # (Auto) 2.0 1.0-4.0 10^3/uL Monocytes # (Auto) 1.1 H 0.0-1.0 10^3/uL Eosinophils # (Auto) 0.3 0.0-0.3 10^3/uL Basophils # (Auto) 0.0 0.0-0.1 10^3/uL Immature Granulocyte # (Auto) 0.0 0.0-0.1 10^3/uL Sodium Level 140 135-145 MMOL/L Potassium Level 3.9 3.6-5.0 MMOL/L Chloride Level 103 98-107 MMOL/L Carbon Dioxide Level 25 21-32 MMOL/L Anion Gap 12 5-14 MMOL/L Blood Urea Nitrogen 19 H 7-18 MG/DL Creatinine 1.00 0.60-1.30 MG/DL Estimat Glomerular Filtration Rate 86 BUN/Creatinine Ratio 19 Glucose Level 71 70-105 MG/DL Calcium Level 9.5 8.5-10.1 MG/DL Corrected Calcium 9.4 8.5-10.1 MG/DL Total Bilirubin 0.3 0.1-1.0 MG/DL Aspartate Amino Transf (AST/SGOT) 30 5-34 U/L Alanine Aminotransferase (ALT/SGPT) 32 0-55 U/L Alkaline Phosphatase 93 40-136 U/L C-Reactive Protein 0.41 <0.50 MG/DL Total Protein 7.7 6.4-8.2 GM/DL Albumin 4.1 3.2-4.5 GM/DL My Orders Orders - OSCAR SEGURA MD Comprehensive Metabolic Panel (01/22/22 07:16) Ed Iv/Invasive Line Start (01/22/22 07:16) Cbc With Automated Diff (01/22/22 07:16) Crp Fs (01/22/22 07:16) Dexamethasone Injection (Decadron Inje (01/22/22 07:17) Diphenhydramine Injection (Benadryl Inje (01/22/22 07:17) Famotidine Tablet (Pepcid Tablet) (01/22/22 07:17) Ct Neck (Soft Tissue) W (01/22/22 07:18) Iohexol Injection (Omnipaque 350 Mg/Ml 1 (01/22/22 07:30) Received Contrast (Hold Metformin- Contr (01/22/22 07:30) Ns (Ivpb) (Sodium Chloride 0.9% Ivpb Bag (01/22/22 07:30) Medications Given in ED Current Medications Medications Dose Ordered Sig/Lena Route Start Time Stop Time Status Last Admin Dose Admin Iohexol 100 ml ONCE ONCE IV 01/22/22 07:30 01/22/22 07:31 DC 01/22/22 08:03 75 ML Sodium Chloride 100 ml ONCE ONCE IV 01/22/22 07:30 01/22/22 07:31 DC 01/22/22 08:03 100 ML Vital Signs/I&O 01/22/22 01/22/22 07:10 08:42 Temp 36.1 36.1 Pulse 85 85 Resp 16 16 B/P (MAP) 151/88 (109) 151/88 Pulse Ox 96 96 O2 Delivery Room Air Room Air Blood Pressure Mean: 109 Progress Progress Note #1: Progress Note Unable to determine precipitating factor for swelling from speaking with the patient. He does take Lisinopril as one of his fdc medicines for hypertension along with Amlodipine. Will check basic labs and CT soft tissue neck since he reports difficulty swallowing along with the swelling. Try Dexamethasone 10 mg IV, Benadryl 50 mg IV with Pepcid 20 mg po to try and help with swelling while waiting on labs and scan. He may need to be switched off of Lisinopril to another medicine as this could still be a cause for his angioedema symptoms, even though he has been on the medicine for a long time. Progress Note #2: Progress Note Labs are stable without acute significant abnormality. He has a normal CBC without elevation of the white blood cell count. His CRP is not elevated. His chemistry panel did not show any acute significant abnormality. CT scan of the soft tissue neck shows swelling to the tongue and underneath tissues but no fluid collection or abscess. Appears to be more reactive. There is also noted a 5 to 6 mm aneurysm at the [place]. Recommend CT angiogram brain to evaluate this in better detail. Will recommend he do th at with PCP as he had co ntrast for the CT soft tissue neck today. Recommend stopping Lisinopril and follow up with pcp for possible change in medicine. Continue amlodipine for BP control. Diagnostic Imaging Diagonstic Imaging: CT Plain Films/CT/US/NM/MRI: other (soft tissue neck) Comments NAME: [facility] REC#: [id number] PT STATUS: REG ER : 1960 PHYSICIAN: OSCAR SEGURA MD ADMIT DATE: 01/22/22/ER FS Draft Date of Exam:01/22/22 CT NECK (SOFT TISSUE) W CLINICAL INDICATION: Patient with tongue swelling after eating cup cake for breakfast. This has happened several times in the past. EXAM: Axial CT scan of the neck soft tissue performed with 75 mL of Omnipaque 350 IV contrast. Sagittal and coronal reformatted images are created. Auto Exposure Controls were utilized during the CT exam to meet ALARA standards for radiation dose reduction. COMPARISON: CT scan of the neck soft tissue with contrast dated 01/11/2021. FINDINGS: There is interval soft tissue prominence of the left side of the tongue with no measurable mass and likely related to swelling. There is no significant interval swelling of the right side of the tongue. Otherwise the visualized portion of lower cavity, sublingual and submandibular regions are unremarkable. There is bogn-pn-yrdwsmli narrowing of the oropharynx. The nasopharynx, oropharynx, hypopharynx, laryngeal soft tissue structures show no other significant abnormality. Previously seen prominence of the soft palate and bilateral palatine tonsillar regions has resolved. 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 There is no lymphadenopathy. Thyroid gland salivary glands are unremarkable. The neck vascular structures show atherosclerotic disease with no major stenosis. Visualized upper lung hurd show emphysematous disease. Stable stairstep grade 1 anterolisthesis C3 on C4, C4-C5, and C5 on C6. There are cervical spine vertebral body spurs and facet arthropathy. There is a partially visualized 5 to 6 mm saccular aneurysm arising from the anterior communicating artery region extending anteriorly. IMPRESSION: 1: There is interval development of soft tissue swelling involving left side of the tongue with atvm-ia-cuqxzcuq narrowing of the oropharynx. There is no measurable mass or fluid collection seen. This finding may be reactive. 2: The previously seen soft tissue swelling of the soft palate and bilateral palatine tonsil regions has resolved. 3: There is a 5 to 6 mm saccular aneurysm arising from the anterior communicating artery. CT angiogram of the [place] is suggested for further characterization. 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 Decision time for Depature: 08:36 Referrals: SULEMAN MARADIAGA MD (PCP/Family) Primary Care Physician Patient Instructions: Angioedema Caused by JV Inhibitor Medicines, Brain Aneurysm (DC) Add. Discharge Instructions: Stop your Lisinopril as this may be causing your swelling. Follow up with your doctor to see what medicine they would want to use to replace Lisinopril. The CT scan today showed a small aneurysm (swelling of blood vessel) in your brain. Radiologist recommends you have a CT angiogram of the [place] to evaluate this in more detail. Call your doctor to have them order this test. Take the steroids and benadryl and Pepcid to help with swelling. If worsening instead of improving return or be seen right away as you may need to be admitted for IV medicines All discharge instructions reviewed with patient and/or family. Voiced understanding. Scripts Diphenhydramine HCl (Diphenhydramine HCl) 25 Mg Capsule 25 MG PO Q4H PRN for tongue swelling for 5 Days, #30 CAP 0 Refills Prov: OSCAR SEGURA MD 01/22/22 Prednisone (Prednisone) 20 Mg Tab 40 MG PO DAILY for tongue swelling for 5 Days, #10 TAB 0 Refills Prov: OSCAR SEGURA MD 01/22/22 OSCAR SEGURA MD Jan 22, 2022 07:27
[2022-01-22] MEDS ORDERED: HOLD METFORMIN - RECEIVED CONTRAST 20 ML VIAL IV SCH (07:30)
[2022-01-22] MEDS ORDERED: IOHEXOL 350 MG/ML 100 ML (OMNIPAQUE 350) VIAL IV ONE (07:30)
[2022-01-22] MEDS ORDERED: NS 100 ML (IVPB) BAG IV ONE (07:30)
[2022-01-22 07:48] LABS: BILIRUBIN,TOTAL 0.3 MG/DL (0.1-1.0); CALCIUM 9.5 MG/DL (8.5-10.1); POTASSIUM 3.9 MMOL/L (3.6-5.0)
[2022-01-22 07:49] LABS: ALBUMIN 4.1 GM/DL (3.2-4.5); TOTAL PROTEIN 7.7 GM/DL (6.4-8.2)
--- NOTE | 2022-01-22 08:30 | Diagnostic Imaging Report ---
CLINICAL INDICATION: Patient with tongue swelling after eating cup cake for breakfast. This has happened several times in the past. EXAM: Axial CT scan of the neck soft tissue performed with 75 mL of Omnipaque 350 IV contrast. Sagittal and coronal reformatted images are created. Auto Exposure Controls were utilized during the CT exam to meet ALARA standards for radiation dose reduction. COMPARISON: CT scan of the neck soft tissue with contrast dated 01/11/2021. FINDINGS: There is interval soft tissue prominence of the left side of the tongue with no measurable mass and likely related to swelling. There is no significant interval swelling of the right side of the tongue. Otherwise the visualized portion of lower cavity, sublingual and submandibular regions are unremarkable. There is glnm-jd-vpuzylxl narrowing of the oropharynx. The nasopharynx, oropharynx, hypopharynx, laryngeal soft tissue structures show no other significant abnormality. Previously seen prominence of the soft palate and bilateral palatine tonsillar regions has resolved. 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 There is no lymphadenopathy. Thyroid gland salivary glands are unremarkable. The neck vascular structures show atherosclerotic disease with no major stenosis. Visualized upper lung hurd show emphysematous disease. Stable stairstep grade 1 anterolisthesis C3 on C4, C4-C5, and C5 on C6. There are cervical spine vertebral body spurs and facet arthropathy. There is a partially visualized 5 to 6 mm saccular aneurysm arising from the anterior communicating artery region extending anteriorly. IMPRESSION: 1: There is interval development of soft tissue swelling involving left side of the tongue with socx-nh-gaypqbwl narrowing of the oropharynx. There is no measurable mass or fluid collection seen. This finding may be reactive. 2: The previously seen soft tissue swelling of the soft palate and bilateral palatine tonsil regions has resolved. 3: There is a 5 to 6 mm saccular aneurysm arising from the anterior communicating artery. CT angiogram of the [place] is suggested for further characterization. 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 Dictated by: Dictated on workstation # [id number]
[2022-01-22] MEDS ORDERED: DIPH25CA48 PO (08:40)
[2022-01-22] MEDS ORDERED: PRD20T PO (08:40)
[2022-01-22 08:42] VITALS: BP 151/88
== END 2022-01-22 08:43 | disposition home or self-care (01) ==
LOC: EDUNIT# 06:50 → ER FS 06:53
DX: T78.3XXA Angioneurotic edema, initial encounter (principal); I72.8 Aneurysm of other specified arteries; F17.210 Nicotine dependence, cigarettes, uncomplicated; I10 Essential (primary) hypertension; Z79.899 Other long term (current) drug therapy; Z87.820 Personal history of traumatic brain injury
CPT/HCPCS: 36415; 70491; 80053; 85025; 86141; Q9967

== ENCOUNTER 2022-06-23 23:49 | Emergency (ER) | payer MEDICAID ==
[~2022-06-23] VITALS: Ht 170 cm; Wt 73.0 kg
[~2022-06-23 23:49] MED LIST changes: +DIPH-1122 PO; +PRD20T PO
[2022-06-23 23:56] VITALS: BP 155/100
--- NOTE | 2022-06-24 00:03 | ED General ---
General Chief Complaint: General Problems/Pain Stated Complaint: SHAKING/POSS MED REACTION Source of Information: Patient Exam Limitations: No Limitations History of Present Illness Date Seen by Provider: Jun 23, 2022 Time Seen by Provider: 23:58 Initial Comments 61-year-old male presents to the emergency department today for shakiness. He does take a "Rhino pill" for male enhancement at the convenience store. He states he typically takes medication from his doctor but he ran out she will try this instead. He states he has been very shaky since that time. He denies any fevers or chills. No chest pain or shortness of breath. He does feel anxious. He is concerned because he has an artificial aortic valve and wants to be sure he has not caused any issues. All other systems reviewed and negative except documented per HPI. Voice recognition software was used to help create this chart Allergies and Home Medications Allergies Coded Allergies: Penicillins (Unverified Allergy, Unknown, 06/28/20) Patient Home Medication List Home Medication List Reviewed: Yes Albuterol Sulfate (Ventolin Hfa) 1 Puff Puff, 2 PUFF IH Q6H PRN for SHORTNESS OF BREATH, (Reported) Entered as Reported by: CHEYENNE MODI on 07/12/20 07 Aspirin (Aspirin EC) 81 Mg Tablet., 81 MG PO DAILY, (Reported) Entered as Reported by: CHEYENNE MODI on 07/12/20 0749 Clindamycin HCl (Clindamycin HCl) 300 Mg Capsule, 300 MG PO Q6H Prescribed by: OSCAR SEGURA on 01/11/21 1008 Diphenhydramine HCl (Diphenhydramine HCl) 25 Mg Capsule, 25 MG PO Q4H PRN for tongue swelling Prescribed by: OSCAR SEGURA on 01/22/22 0840 Metoprolol Succinate (Metoprolol Succinate) 25 Mg Tab.er.24h, 25 MG PO DAILY, (Reported) Entered as Reported by: CHEYENNE MODI on 07/12/20 0749 Omeprazole (Omeprazole) 20 Mg Capsule.dr, 20 MG PO DAILY, (Reported) Entered as Reported by: CHEYENNE MODI on 07/12/20 0749 Prednisone (Prednisone) 20 Mg Tab, 40 MG PO DAILY Prescribed by: OSCAR SEGURA on 01/22/22 0840 Review of Systems Review of Systems Constitutional: see HPI Past Egrpwpd-Qlzoys-Xdxlhy Hx Immunizations Up To Date First/Initial COVID19 Vaccinat: August 2020 Second COVID19 Vaccination Kareem: August 2020 Third COVID19 Vaccination Date: August 2020 Past Medical History Surgery/Hospitalization HX: Aortic valve replacement, All teeth removed, Hypertension Surgeries: Yes Valve Replacement Respiratory: Yes COPD Currently Using CPAP: No Currently Using BIPAP: No Cardiac: Yes High Cholesterol, Hypertension, Valvular Heart Disease Neurological: Yes Concussion Genitourinary: No Gastrointestinal: Yes Gastroesophageal Reflux Cancer: No Family Medical History Reviewed Nursing Family Hx No Pertinent Family Hx Physical Exam Vital Signs Vital Signs - First Documented 06/23/22 23:56 Temp 36.4 Pulse 97 Resp 16 B/P (MAP) 155/100 (118) Capillary Refill : Height, Weight, BMI Height: '" Weight: lbs. oz. kg; 26.00 BMI Method: General Appearance: No Apparent Distress, WD/WN HEENT: Normal ENT Inspection, Pharynx Normal Neck: Full Range of Motion, Normal Inspection, Non Tender, Supple Respiratory: Chest Non Tender, Lungs Clear, Normal Breath Sounds, No Accessory Muscle Use, No Respiratory Distress Cardiovascular: Regular Rate, Rhythm, No Murmur, Normal Peripheral Pulses Gastrointestinal: Normal Bowel Sounds, No Organomegaly, No Pulsatile Mass, Non Tender, Soft Extremity: Normal Capillary Refill, Normal Inspection, Normal Range of Motion, Non Tender, No Calf Tenderness Neurologic/Psychiatric: Alert, Oriented x3, No Motor/Sensory Deficits, Other (Fine motor tremor bilateral upper extremity) Skin: Normal Color, Warm/Dry Progress/Results/Core Measures Suspected Sepsis SIRS Temperature: Pulse: Respiratory Rate: Blood Pressure / Mean: Results/Orders Vital Signs/I&O 06/23/22 23:56 Temp 36.4 Pulse 97 Resp 16 B/P (MAP) 155/100 (118) Capillary Refill : Departure Communication (Admissions) Patient is hemodynamically stable. He appears anxious and has a fine tremor. This likely medication reaction. He has slightly hypertensive. When talking to me his heart rate is in the low 100s. When I leave the room his heart rate is in the upper 80s to low 90s. His oxygen saturation is normal. There is no murmur on exam or dysfunction. Is not having any chest pain and is not short of breath. Given p.o. hydroxyzine and discharged in stable condition with supportive care. Impression Primary Impression: Medication reaction Qualified Codes: T50.905A - Adverse effect of unspecified drugs, medicaments and biological substances, initial encounter Disposition: HOME, SELF-CARE Condition: Stable Departure-Patient Inst. Referrals: SULEMAN MARADIAGA MD (PCP/Family) Primary Care Physician Patient Instructions: Adverse Drug Reactions, Adult Add. Discharge Instructions: Your symptoms will likely last another few hours. I gave you hydroxyzine here which should help in the 30 minutes to an hour. Increase your fluids at home, rest. Return to the emergency department for any severe concerns. Follow-up with your primary doctor for any nonemergent needs. All discharge instructions reviewed with patient and/or family. Voiced understanding. NATASHA SILVA DO Jun 24, 2022 00:03
[2022-06-24] MEDS ORDERED: hydrOXYzine (VISTARIL/ATARAX) 25 MG capsule/tablet PO ONE (00:15)
== END 2022-06-24 00:19 | disposition home or self-care (01) ==
LOC: EDUNIT# 23:49 → ER FS 23:51
DX: R25.1 Tremor, unspecified (principal); T46.7X5A Adverse effect of peripheral vasodilators, initial encounter; I10 Essential (primary) hypertension
CPT/HCPCS: 99283